=== PATIENT | male | born 1965 | race Caucasian/White ===

== ENCOUNTER 2018-07-26 01:01 | Day surgery (SDC) | payer OTHER ==
[2018-07-26] VITALS (7 sets, daily range): BP systolic 109–131; BP diastolic 70–98
[~2018-07-26] VITALS: Ht 175.3 cm; Wt 72.6 kg
[~2018-07-26 01:01] MED LIST: ACET500T68 PO; INDO-1 PO; LOR5 PO; NO ROUTINE MEDS
[2018-07-26] MEDS: NORMOSOL R SOLN(*) 1000 ML BAG 1,000 ML IV PRN ×2 (05:21→09:09)
[2018-07-26] MEDS ORDERED: MIDAZOLAM 2 MG/2 ML VIAL IVP PRN (06:00)
[2018-07-26] MEDS ORDERED: ceFAZolin(*) 2GM/D5W 50ML 50 ML IVPB ONE (06:00)
[2018-07-26] MEDS ORDERED: FAMOTIDINE 20 MG TAB PO ONE (06:00)
[2018-07-26] MEDS ORDERED: ACETAMINOPHEN 500 MG TAB PO ONE (06:00)
[2018-07-26] MEDS ORDERED: PREGABALIN 150 MG CAPSULE PO ONE (06:00)
[2018-07-26] MEDS ORDERED: LIDOCAINE/SOD BICARB 8.4% SYR ID ONE (06:00)
[2018-07-26] MEDS ORDERED: DEXAMETHASONE SOD PHOS 10MG/ML ONE ×2 (06:16→06:20)
[2018-07-26] MEDS ORDERED: BUPIVACAIN 0.25% INJ 50ML VIAL ONE (06:16)
[2018-07-26] MEDS ORDERED: ONDANSETRON 4 MG/2 ML VIAL ONE (06:20)
[2018-07-26] MEDS ORDERED: LIDOCAINE MPF 1% 5 ML VIAL ONE (06:20)
[2018-07-26] MEDS ORDERED: fentaNYL CITR 100 MCG/2 ML AMP ONE ×3 (06:20→09:03)
[2018-07-26] MEDS ORDERED: KETAMINE HCL-NS 50 MG/5 ML SYR ONE (06:20)
[2018-07-26] MEDS ORDERED: PROPOFOL EMUL(*) 10MG/ML 20 ML 20 ML ONE (06:20)
[2018-07-26] MEDS ORDERED: ROCURONIUM BROM 10 MG/ML 10 ML ONE (06:20)
[2018-07-26] MEDS ORDERED: SUGAMMADEX SOD 500 MG/5 ML SDV ONE (08:01)
[2018-07-26] MEDS ORDERED: KETOROLAC 30 MG/ML VIAL ONE (08:37)
[2018-07-26] MEDS ORDERED: LOR5/325 PO (08:49)
[2018-07-26] MEDS ORDERED: DIA5 PO (08:50)
[2018-07-26] MEDS ORDERED: DOCU240C84 PO (08:51)
--- NOTE | 2018-07-26 09:23 | OPERATIVE REPORT 1 ---
EVENT DATE: July 26, 2018 SURGEON: West Newman MD ANESTHESIOLOGIST: Supa Boudreaux MD ANESTHESIA: General endotracheal. BUSINESS PERFORMANCE ANALYST: NATACHA Berman PREOPERATIVE DIAGNOSIS Right S1 radiculopathy with right L5-S1 paracentral disk bulge. POSTOPERATIVE DIAGNOSIS Right S1 radiculopathy with right L5-S1 paracentral disk bulge. PROCEDURE PERFORMED Right sided L5-S1 laminoforaminotomy and diskectomy. IV FLUIDS 900 cc's. ESTIMATED BLOOD LOSS 20 cc's. IMPLANTS None. SPECIMENS None. DRAINS None. COMPLICATIONS None. DISPOSITION Post-Anesthesia Care Unit. INDICATIONS Mr. Mark is a 52-year-old gentleman who presented to my clinic with a complaint of radiating right lower extremity pain, numbness and tingling down the posterior buttock, posterior thigh and into the posterior calf. He began having those symptoms after slipping on some paper on the floor and did not note any weakness in that leg. Physical therapy, traction and injections were not helpful in terms of alleviating his pain. He had a negative straight leg raising test, normal strength and intact sensation in all dermatomes. X-rays and an MRI showed degenerative changes at L4-5 and S1 and a broad-base bulge at L5-S1 with a superimposed right sided subcapsular herniation crowding the traversing S1 nerve. Secondary to ongoing symptoms and failure to improve with Medrol Dosepak, physical therapy, activity modifications, etc., he was offered and elected to undergo L5-S1 laminoforaminotomy and microdiskectomy. Prior to surgery, I explained in detail to the patient the possible risks of surgery. These risks include bleeding, infection, damage to surrounding structures, nerve root injury, spinal fluid lead, persistent and/or worsening pain, need for further surgery, , blindness, sexual dysfunction, autonomic nervous system dysfunction and other unforeseen medical and surgical complications. An understanding that in general spinal surgery is more predictive at improving extremity discomfort than axial spine pain was stressed. DESCRIPTION OF PROCEDURE On the date of surgery, the patient was met in the preoperative hold area and all questions were answered. The operative site was identified and marked by myself. The patient was brought in good condition to the operating room and after succumbing to anesthesia was positioned in the prone position on a Phillip table. All bony protuberances and soft tissues were well padded in the standard fashion. Care was taken to maintain appropriate perfusion pressures during anesthesia. Preoperative antibiotics were administered according to the appropriate timing schedule. At the conclusion of the procedure, sponge and needle counts were correct x2. A final time-out was undertaken by members of the operating team to confirm correct patient, correct levels and correct surgery. A spinal needle was placed on the L5 spinous process and a lateral radiograph was obtained to confirm appropriate placement. The patient was then prepped and draped in standard sterile orthopedic fashion and a 1-inch incision was made overlying the intended surgical level. Sharp dissection was carried out down to the posterior elements and soft tissue was elevated off the posterior elements on the right side in a subperiosteal manner. A minimally invasive retractor was then placed and a second lateral radiograph was obtained to again confirm appropriate levels. Microscope was brought into the field and overlying soft tissue was removed, exposing the ligamentum flavum. The inferior insertion of the ligamentum flavum was teased off the superior aspect of the S1 lamina using a Georges curette. The Sterling elevator was used to separate any dural adhesions from surrounding bone and soft tissue prior to use of the Kerrison punch. A lateral recess decompression was performed with Kerrison rongeur and the shoulder of the nerve root was retracted medially, exposing the disk. A small annulotomy was made into the capsule overlying the disk herniation and multiple small fragments of loose disk material were removed. The Tangela Nerve Root Retractor was used to milk any further disk fragments out through the defect and any further loose disk material was excised. A [place] elevator was used to explore the floor of the canal, sweeping and searching for further disk fragments. An excellent decompression was achieved and prior to completion of the procedure I also used at #3 Kerrison to perform a limited foraminotomy, again ensuring that the exiting nerve root was well decompressed. The wound was then irrigated with copious sterile saline solution and meticulous hemostasis obtained. The nerve root was bathed in 2 mg of Decadron prior to closure. The wound was then closed in layers using interrupted sutures of the fascia and inverted interrupted sutures for the subcutaneous tissue and a running subcuticular skin stitch. Sponge and needle counts were correct x2. POSTOPERATIVE CARE PLAN Mr. Mark will remain in the recovery area until he meets discharge criteria. He will be discharged home with instructions to follow up in two weeks for wound check and examination. JARRED
--- NOTE | 2018-07-26 10:03 | RADIOLOGY IMAGING REPORT ---
FACILITY: [facility] - [place] PATIENT NAME: Eduardo Mark : 1965 MR: [id number] V: [id number] EXAM DATE: ORDERING PHYSICIAN: TABITHA GARCIA TECHNOLOGIST: Location: [facility] - [place] Patient: Eduardo Mark : 1965 Visit/Account:[id number] Date of Sevice: 07/26/2018 Technique: L-SPINE >4 VIEWS HISTORY: L5-S1 DISC HERNIATION Comparison studies: None FINDINGS: 2 operative images were obtained of the lower lumbar spine. Surgical instrumentation is se en posterior to the L5 vertebral body. There is no acute fracture. Multilevel degenerative changes are noted. IMPRESSION: 1. Operative images of the lumbar spine. Please see procedural report for complete details. Report Dictated By: Richardson Mccoy DO at 07/26/2018 9:55 AM Report E-Signed By: Richardson Mccoy DO at 07/26/2018 9:56 AM WSN:[facility]-MARY JO
[2018-07-26] MEDS ORDERED: APAP/HYDROCODONE 325/5 TAB PO ONE (10:05)
== END 2018-07-26 09:40 | disposition home or self-care (01) ==
LOC: OR 01:01
PROVIDERS: ATTEND Orthopaedic Surgery
DX: M51.17 Intervertebral disc disorders with radiculopathy, lumbosacral region (principal)
CPT/HCPCS: 63030; 72020; J1100; J1885; J2001; J2405; J2704; J3010; J3490; J0690